=== PATIENT | female | born 1965 | race Caucasian/White ===

== ENCOUNTER 2023-01-13 09:56 | Outpatient (AMB) | payer OTHER, SELFPAY ==
--- NOTE | 2023-01-13 10:07 | AM.OFFWIN_ITS ---
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 Patient has been complaining of left foot pain for the past 1 month. Does not recall any fall or injury prior to the onset of symptoms. 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 Recently she was on vacation for a week and her symptoms subsided only to be aggravated again. Physical Exam Vital Signs: Last Vital Signs Temp 98.8 F 01/13/23 10:08 Pulse 110 H 01/13/23 10:08 BP 122/82 01/13/23 10:08 Pulse Ox 96 01/13/23 10:08 Oxygen Delivery Method Room Air 01/13/23 10:08 BMI result Body Mass Index 39.8 Extrem Other: Left foot: Tenderness over the calcaneus. Discomfort on inversion and eversion. Assessment & Plan Assessment & Plan (1) Plantar fasciitis of left foot: Code(s): M72.2 - Plantar fascial fibromatosis Plan: X-ray images were personally reviewed by me. Meloxicam called in. Patient was advised to stay off the foot Orders: Orders XR foot LT min 3V Today M72.2 - Plantar fascial fibromatosis Coding Level of Care Code New Pt Level 4 (73688) Diagnoses Plantar fasciitis of left foot M72.2
[2023-01-13 10:08] VITALS: BP 122/82; PULSE 110; TEMP 37.1; O2SAT 96; BMI 39.8
== END 2023-01-13 11:56 | disposition home or self-care (01) ==
PROVIDERS: Visit Provider Internal Medicine
DX: M72.2 Plantar fascial fibromatosis (principal)
CPT/HCPCS: 99204

== ENCOUNTER 2023-01-13 11:07 | Outpatient (REF) | payer OTHER, SELFPAY ==
--- NOTE | ~2023-01-13 | XR_ITS ---
EXAMINATION: XR FOOT, LEFT CLINICAL INFORMATION: Plantar fascial fibromatosis COMPARISON: None available. TECHNIQUE: AP, lateral, and oblique views of the left foot. FINDINGS: The moderate size calcaneal enthesophyte. No visible acute fracture or dislocation seen. The ankle mortise and subtalar joints are normal. XR/XR foot LT min 3V IMPRESSION: Moderate size calcaneal enthesophyte. No visible acute fracture or dislocation seen. No soft tissue abnormality seen.
== END 2023-01-13 11:08 | disposition home or self-care (01) ==
LOC: HO.HMGCX 11:07
PROVIDERS: Visit Provider Internal Medicine
DX: M72.2 Plantar fascial fibromatosis (principal)
CPT/HCPCS: 73630

== ENCOUNTER 2023-01-22 08:54 | Outpatient (AMB) | payer OTHER, SELFPAY ==
--- NOTE | 2023-01-22 08:55 | AM.OFFWIN_ITS ---
Intake Vital Signs 01/22/23 08:56 Height 5 ft 2 in Weight 222 lb 2 oz BMI 40.6 BP 132/80 Blood Pressure Location Rt brachial Position Sitting Pulse 78 Pulse Source Pulse Oximeter Temp 97.0 F Temp Source Temporal Artery Scan Pulse Oximetry (%) 97 Intake Visit Reasons: EP Follow up LT Foot Intake Note: pt is here for f/u from left foot bone spur Patient Tobacco Use Status: Never used Tobacco Allergies No Known Allergies Allergy (Verified 01/22/23 09:14) Medication List - Last Reconciled 01/22/23 by Mook Molina MD meloxicam 15 mg PO DAILY Do you need a note to return to daycare/school/sports/work: Yes HPI EP Follow up LT Foot HPI Details 57-year-old female presents to the offic e for a follow-up visit. Patient is reporting significant improvement in her symptoms. She followed the advised provided in the last visit which included keeping her leg elevated. She is now able to bear weight and feels she can return back to work with no restrictions. Able to walk with no difficulty. PFSH Social History Patient Tobacco Use Status: Never used Tobacco Physical Exam Vital Signs: Last Vital Signs Temp 97.0 F 01/22/23 08:56 Pulse 78 01/22/23 08:56 BP 132/80 01/22/23 08:56 Pulse Ox 97 01/22/23 08:56 BMI result Body Mass Index 40.6 Extrem Other: No tender areas identified. Assessment & Plan Assessment & Plan (1) Plantar fasciitis of left foot: Code(s): M72.2 - Plantar fascial fibromatosis Plan: Keep foot elevated. Return to work with no restrictions. Coding Level of Care Code Est Pt Level 3 (03754) Diagnoses Plantar fasciitis of left foot M72.2
[2023-01-22 08:56] VITALS: BP 132/80; PULSE 78; TEMP 36.1; O2SAT 97; BMI 40.6
== END 2023-01-22 09:17 | disposition home or self-care (01) ==
PROVIDERS: Visit Provider Internal Medicine
DX: M72.2 Plantar fascial fibromatosis (principal)
CPT/HCPCS: 99213

== ENCOUNTER 2023-01-30 07:42 | Outpatient (AMB) | payer OTHER, SELFPAY ==
--- NOTE | 2023-01-30 08:11 | A.OFFPC_ITS ---
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 She was last seen in the walk-in 9 days prior to this appointment for left foot pain. A left foot x-ray revealed bone spur of the left heel. She reports that she is prediabetic and that she has gastric reflux. Her last eye exam was 3 months prior to the appointment, her last colonoscopy was reported to be in 2019, her last Pap smear was reported to be in 2021. She is up-to-date with her influenza vaccination, and has not elected for the COVID booster this year. She has no complaints at the time of visit. [facility] Surgical History (Updated 01/30/23 @ 08:30 by MATHEW Camp) History of tonsillectomy Family History (Updated 01/30/23 @ 08:31 by MATHEW Camp) Father Substance use disorder Mother Mental health disorder Breast cancer Social History Housing: House Patient Tobacco Use Status: Former Tobacco user e-Cigarette/Vaping Use: Never Used service: No Current occupational status: employed Cognitive needs: No Hearing needs: No Vision needs: Yes Questionnaire PHQ-9 Over the last 2 weeks, how often have you been bothered by any of the following problems? 1. Little interest or pleasure in doing things: several days 2. Feeling down, depressed, or hopeless: several days 3. Trouble falling or staying asleep, or sleeping too much: several days 4. Feeling tired or having little energy: several days 5. Poor appetite or overeating: several days 6. Feeling bad about yourself - or that you are a failure or have let yourself or your family down: several days 7. Trouble concentrating on things, such as reading the newspaper or watching television: not at all 8. Moving or speaking so slowly that other people could have noticed. Or the opposite - being so fidgety or restless that you have been moving around a lot more than usual: not at all 9. Thoughts that you would be better off or of hurting yourself in some way: not at all Total score: 6 Depression Screening Interpretation: Negative Depression Screening Done: Yes 04820 - PHQ-9 Billing: Yes Source: Developed by Drs. Rasheed Martinez, Shira Araya, Melchor Suh and colleagues, with an educational farhad from [email or web address]. Thrive Questionnaire Date Thrive assessed: 01/30/23 I am a: Patient What is your living situation today?: I have a steady place to live Within the past 12 months, did the food you bought not last and you didn't have the money to get more?: Sometimes True Within the past 12 months, did you worry whether your food would run out before you got money to buy more?: Sometimes True Do you have trouble paying for medicines?: No Do you have trouble getting transportation to medical appointments?: No Do you have trouble paying your heating and electricity bill?: Yes Do you have trouble taking care of your child, family member or friend?: No Do you have trouble with day-to-day activities such as bathing, preparing meals, shopping, managing finances, etc.?: No Are you currently unemployed and looking for a job?: No Are you interested in more education?: No AUDIT C Alcohol Use Questionnaire (AUDIT-C) 1. How often do you have a drink containing alcohol?: Monthly or less 2. How many drinks containing alcohol do you have on a typical day when you are drinking?: 1 or 2 3. How often do you have six or more drinks on one occasion?: Never Total Score: 1 YESICA-7 AMB Questionnaire YESICA-7 Date YESICA - 7 assessed: 01/30/23 Feeling nervous, anxious, or on edge: 0 = Not at all Not being able to stop or control worryin = Several days Worrying too much about different things: 1 = Several days Trouble relaxin = Not at all Being so restless that it is hard to sit still: 0 = Not at all Becoming easily annoyed or irritable: 1 = Several days Feeling afraid as if something awful might happen: 1 = Several days Total YESICA-7 score (0-4 normal; 5-9 mild; 10-14 moderate; 15-21 severe): 4 Source: Developed by Drs. Rasheed Martinez, Shira Araya, Melchor Suh and colleagues, with an educational farhad from [email or web address]. YESICA-7 Assessment Billing YESICA-7 Assessment Tool: YESICA-7 Assessment 38131 Review of Systems Const Details: Constitutional : No Weight loss, No Fever, No Chills, Admits feeling tired during the day. ENT/Mouth : No sore throat, No Rhinorrhea. Patient states she has some ringing in the ears. Eyes: No Eye Pain, No Swelling, No Redness Cardiovascular : No Chest Pain, No SOB, No Dyspnea on Exertion, No Orthopnea, No Edema, No Palpitations Respiratory : No Cough, No Sputum, No Wheezing Gastrointestinal : No Nausea, No Vomiting, No Diarrhea, No Constipation, No abdominal Pain, No Hematochezia, No Melena Genitourinary : No Dysuria, No Urinary Frequency, No Hematuria, Musculoskeletal : No joint pain, No Myalgias, No Joint Swelling Skin : No Skin Lesions, No rash Neuro : No Weakness, No Numbness, No Dizziness, No Headache Psych : No Anxiety/Panic, No Depression Heme/Lymph: No Bruising, No Bleeding,No Lymphadenopathy Endocrine : No Polyuria, No Polydipsia All other systems reviewed and are negative All systems reviewed & are unremarkable except as noted in HPI and below Physical exam (Primary Care) Care Plan Goal for BP management: Vital signs have been reviewed and are stable. BMI result Body Mass Index 40.6 Tobacco/Smoking Status: Tobacco use Status Patient Tobacco Use Status Never used Tobacco 01/22/23 09:00 Depression Screening Interpretation: Negative Const General: cooperative and no acute distress Orientation/consciousness: patient oriented x3 Limitations: no limitations HENMT Head: Yes normal to inspection and Yes normocephalic General nose exam: Normal external nose present Face and sinus: Yes normal facial exam and No sinus tenderness Mouth: Normal oral and palatal mucosa present Eyes General: appearance normal, both eyes and all related structures Sclerae: sclerae normal Pupils: Equal, round and reactive pupils present EOM: EOMs intact bilaterally Direct Ophthalmoscopy: normal light reflex and no photophobia Neck Neck: Yes normal visual inspection, Yes full ROM and Yes no lymphadenopathy Thyroid: Thyroid normal Lymphatic: no lymphadenopathy noted Resp Effort & Inspection: normal respiratory effort Auscultation: clear to auscultation bilaterally Cardio Jugular venous distension: no JVD Rate: regular rate Rhythm: regular rhythm and abnormal rhythm Heart sounds: S1 normal heart sound present and S2 normal heart sound present GI Inspection: Yes normal to inspection Palpation (GI): Soft to palpation and nontender General: Yes no CVA tenderness Back/Spine/Pelvis Back: no CVA tenderness Skin General skin exam: no rashes or lesions noted Neuro General: patient oriented x3 and CN's II-XI intact bilaterally Cranial nerves: Yes Equal, round and reactive pupils present Gait exam (Neuro): Normal gait present Motor exam (neuro): 5/5 motor strength present throughout Deep tendon reflexes (DTR's): Right patellar reflex intensity grade: 2+ and Left patellar reflex intensity grade: 2+ Extrem General: Yes normal to inspection and Yes full ROM Psych Attitude: cooperative Thought process: Normal thought process present Insight: Good insight present (Psych) Judgement: Good judgement present (Psych) Results Reviewed Results Reviewed: Will call patient with results. Assessment and Plan Assessment & Plan (1) Encounter for routine adult physical exam with abnormal findings: Comment: Will draw CBC, CMP, UA, TSH, T4, A1c, vitamin-D, vitamin-B, iron profile, lipid profile. Code(s): Z00.01 - Encounter for general adult medical examination with abnormal findings (2) GERD (gastroesophageal reflux disease): Comment: Patient states she changed her diet 6 weeks prior to this visit. She states that her GERD symptoms have improved significantly and would like to continue to try to control her symptoms with diet modification. Code(s): K21.9 - Gastro-esophageal reflux disease without esophagitis Qualifiers: Esophagitis presence: esophagitis presence not specified Qualified Code(s): K21.9 - Gastro-esophageal reflux disease without esophagitis Plan: Patient states that she feels tired during the day. Notice that her sleep improved when she started wearing nasal strips. Patient has been given fluticasone nasal spray. Patient declined sleep referral at this time. Plan Patient will follow-up with physical exam in 1 year. Will get back to patient with lab results as soon as they are available. Orders: Orders Hemoglobin A1c Today Z00. - Encounter for general adult medical examination with abnormal findings Complete Blood Count Auto Diff Today Z. - Encounter for general adult medical examination with abnormal findings Comprehensive Met. Panel Today Z. - Encounter for general adult medical examination with abnormal findings IRON PROFILE Today Z. - Encounter for general adult medical examination with abnormal findings Lipid Panel Today Z. - Encounter for general adult medical examination with abnormal findings Vitamin D 25-OH (D2 and D3) Today Z. - Encounter for general adult medical examination with abnormal findings UA CC w/rflx Micro + Cult Today Z. - Encounter for general adult medical examination with abnormal findings MM tomosynthesis screening BI Today Z. - Encounter for general adult medical examination with abnormal findings Vitamin B6 Today Z. - Encounter for general adult medical examination with abnormal findings Vitamin B12 Today Z. - Encounter for general adult medical examination with abnormal findings TSH reflex Free T4 Today Z. - Encounter for general adult medical examination with abnormal findings Referrals [employer] SUPERINTENDENT Referral Z. - Encounter for general adult medical examination with abnormal findings Medications: New fluticasone propionate 50 mcg/actuation (Allergy Relief (fluticasone)) administer into each nostril 1 spray intranasal Q12H 16 grams 0RF Discontinued meloxicam Discontinued Reason: Patient Completed Course 15 mg PO DAILY 14 tabs 0RF Coding Level of Care Code New Pt Level 4 (68346) Diagnoses Encounter for routine adult physical exam with abnormal findings Z00. Gastroesophageal reflux disease, unspecified whether esophagitis present K21.9 Esophagitis presence: esophagitis presence not specified Additional Codes YESICA-7 Assessment Billing - YESICA-7 Assessment Tool: YESICA-7 Assessment 63535 ([id number]) Time Spent (min) 30
[2023-01-30 08:14] VITALS: BP 120/72; PULSE 77; O2SAT 97; BMI 40.6
== END 2023-01-30 09:29 | disposition home or self-care (01) ==
PROVIDERS: Visit Provider Nurse Practitioner Primary Care
DX: Z00.00 Encounter for general adult medical examination without abnormal findings (principal); K21.9 Gastro-esophageal reflux disease without esophagitis
CPT/HCPCS: 99396

== ENCOUNTER 2023-01-30 08:59 | Outpatient (REF) | payer OTHER, SELFPAY ==
[2023-01-30 11:14] LABS: MANUAL DIFF FLAG NO
[2023-01-30 11:29] LABS: Appearance Urine Clear; Color Urine Yellow; Glucose Urine UA Negative (Negative); Leukocyte Esterase Urine Negative (Negative); Nitrite Urine Negative (Negative); Urine Blood Negative (Negative); Urine Ketones Negative (Negative); Urine Protein Negative (Neg-Trace)
[2023-01-30 11:38] LABS: Basophils Absolute Auto 0.1 X10*3/uL (0.0-0.2); Eosinophils Absolute Auto 0.2 X10*3/uL (0.0-0.4); Eosinophils Percent Auto 3.2 % (0-4); Hematocrit 40.3 % (37.0-47.0); Hemoglobin 12.8 g/dl (12.0-16.0); Imm Gran Abs Auto 0.01 X10*3/uL (0.00-0.03); Imm Gran Pct Auto 0.2 % (0.0-0.4); Lymphocytes Absolute Auto 2.2 X10*3/uL (1.2-4.9); Lymphocytes Percent Auto 35.5 % (20-40); Mean Corpuscular HGB Conc 31.8 g/dl (31.0-35.0); Mean Corpuscular Hemoglobin 27.5 pg (27.0-33.0); Mean Corpuscular Volume 86.5 fL (80.0-98.0); Mean Platelet Volume 9.7 fL (9.4-12.3); Monocytes Absolute Auto 0.6 X10*3/uL (0.1-1.2); Neutrophils Absolute Auto 3.2 x10*3/uL (2.0-8.3); Neutrophils Percent Auto 51.1 % (45-73); Platelet Count 342 X10*3/uL (160-400); Red Blood Count 4.66 X10*6/uL (4.20-5.50); Red Cell Distribution Width 14.1 % (11.0-16.0); White Blood Count 6.2 X10*3/uL (4.8-10.8)
[2023-01-30 11:45] LABS: Estimated Average Glucose 137 mg/dL; Hemoglobin A1C 151.4212 umol/L; Hemoglobin A1c % 6.4 % (<6.0)
[2023-01-30 11:53] LABS: Alanine Aminotransferase 17 U/L (0-31); Albumin Level 4.4 g/dL (3.5-5.0); Alkaline Phosphatase 80 U/L (39-117); Anion Gap 12 (12-20); Aspartate Amino Transferase 15 U/L (5-31); Bilirubin Total 0.4 mg/dL (0.0-1.0); Blood Urea Nitrogen 10 mg/dL (9-16); Calcium 9.4 mg/dL (8.4-10.2); Carbon Dioxide 26 mmol/L (22-29); Chloride 108 mmol/L (96-108); Cholesterol 195 mg/dL (<200); Estimated Glomerular Filt Rate > 60; Glucose Random 114 mg/dL (60-115); HDL Cholesterol 45 mg/dL (>40); Iron 65 mcg/dL (30-160); LDL Cholesterol Calculated 126 mg/dL (<100); Percent Iron Saturation 23 % (15-50); Potassium 4.5 mmol/L (3.3-5.1); Sodium 141 mmol/L (135-145); Total Iron Binding Capacity 279 mcg/dL (228-428); Total Protein 7.6 g/dL (6.5-8.0); Triglycerides 121 mg/dL (<150); Unsaturated Iron Binding 214 ug/dL
[2023-01-30 12:09] LABS: TSH reflex Free T4 1.03 uIU/mL (0.32-4.0)
[2023-01-30 12:22] LABS: Vitamin B12 295 pg/mL (200-900)
[2023-02-05 11:53] LABS: Vitamin B6 7.8 ng/mL (2.1-21.7)
[2023-02-05 12:53] LABS: Vitamin D 25-OH, D2 <4 ng/mL; Vitamin D 25-OH, D3 11 ng/mL; Vitamin D 25-OH, Total 11 ng/mL (30-100)
== END 2023-01-30 09:00 | disposition home or self-care (01) ==
LOC: HO.HMGCLDS 08:59
PROVIDERS: PCP Nurse Practitioner Primary Care; Visit Provider Nurse Practitioner Primary Care
DX: Z00.01 Encounter for general adult medical examination with abnormal findings (principal)
CPT/HCPCS: 36415; 80053; 80061; 81003; 82306; 82607; 83036; 83540; 84207; 84443; 85025

== ENCOUNTER 2023-03-19 15:33 | Outpatient (REF) | payer OTHER, SELFPAY ==
--- NOTE | ~2023-03-19 | MM_ITS ---
EXAMINATION: MM SCREENING DIGITAL BREAST TOMOSYNTHESIS, BILATERAL CLINICAL INFORMATION: Screening. Asymptomatic. COMPARISON: Mammography: This is a new baseline study. There are no prior mammograms available for comparison. TECHNIQUE: Digital breast tomosynthesis is performed in both the craniocaudal and mediolateral oblique views along with computer-aided detection (CAD). Synthesized 2D images are generated from the tomosynthesis. FINDINGS: There are scattered areas of fibroglandular density (ACR BI-RADS breast composition Category b). There are no significant masses, abnormal calcifications, or other abnormalities. MM/MM tomosynthesis screening BI IMPRESSION: No mammographic evidence of malignancy. ASSESSMENT: BI-RADS BI-RADS 1 - Negative RECOMMENDATION: Routine annual mammography screening. 1 year F/U This examination should not preclude the clinical evaluation of a suspicious palpable abnormality. This patient's information was entered into a reminder system with a target due date for their next mammogram.
== END 2023-03-19 15:34 | disposition home or self-care (01) ==
LOC: HO.MAMMO 15:33
PROVIDERS: PCP Nurse Practitioner Primary Care; Visit Provider Nurse Practitioner Primary Care
DX: Z12.31 Encounter for screening mammogram for malignant neoplasm of breast (principal)
CPT/HCPCS: 77063; 77067

== ENCOUNTER → 2023-03-19 15:45 | Outpatient (BNV) | payer OTHER, SELFPAY | PROVIDERS: PCP Nurse Practitioner Primary Care; Visit Provider Radiology Diagnostic Radiology | DX: Z12.31 Encounter for screening mammogram for malignant neoplasm of breast (principal) | CPT/HCPCS: 77063; 77067 ==

== ENCOUNTER 2023-04-01 12:23 | Outpatient (REF) | payer OTHER, SELFPAY ==
[2023-04-09 03:29] LABS: HPV 16 RNA NOT DETECTED (NOT DETECTED); HPV mRNA E6/E7 rflx Detected (Not Detected)
== END 2023-04-01 12:24 | disposition home or self-care (01) ==
LOC: HO.LNP 12:23
PROVIDERS: PCP Nurse Practitioner Primary Care; Visit Provider Obstetrics & Gynecology
DX: Z12.4 Encounter for screening for malignant neoplasm of cervix (principal); Z11.51 Encounter for screening for human papillomavirus (HPV)
CPT/HCPCS: 87624; 87625; 88142

== ENCOUNTER 2023-04-01 12:23 | Outpatient (AMB) | payer OTHER, SELFPAY ==
[2023-04-01 12:39] VITALS: BP 120/72; BMI 41.0
--- NOTE | 2023-04-01 12:39 | MHC.OFFVIS ---
Intake Vital Signs 04/01/23 12:39 Height 5 ft 2 in Weight 224 lb BMI 41.0 BP 120/72 Intake Visit Reasons: Well woman exam Expenditure Requisition Clerk Required: No Information Interpreted: non-clinical & clinical Clinical Administrative Coordinator: Clinical Administrative Coordinator Present (Aidyn) Allergies No Known Allergies Allergy (Verified 04/01/23 12:40) Is last menstrual period known: No Post menopausal: Yes Patient : No HPI HPI Comments History of Present Illness Details Presenting for annual exam. No complaints. Last Pap/HPV not available in EMR Last Mammogram was in 03/19 BI-RADS 1 Last colonoscopy was 3 years ago, the recommendation was to repeat in 5 years , according to the patient, no reports available. PFSH Surgical History History of tonsillectomy Family History Father Substance use disorder Mother Mental health disorder Breast cancer Social History Housing: House Patient Tobacco Use Status: Former Tobacco user e-Cigarette/Vaping Use: Never Used Patient : No service: No Current occupational status: employed Cognitive needs: No Hearing needs: No Vision needs: Yes Female Reproductive History Menstrual Age of Menarche: 11 control method: none Total pregnancies: 2 Full term: 2 Number of Living Children: 2 Date of Mammogram: 03/19/23 Review of Systems Const All systems reviewed & are unremarkable except as noted in HPI and below Card Reports as per HPI Resp Reports as per HPI GI Reports as per HPI and Reports no additional complaints Reports as per HPI Physical Exam Vital Signs: Last Vital Signs BP 120/72 04/01/23 12:39 BMI result Body Mass Index 41.0 Const General: cooperative, healthy appearing and comfortable Chest Chest palpation & inspection: normal inspection of the chest and normal palpation of entire chest wall Breast/axilla inspection: normal inspection of the breasts and normal inspection of the axillae Breast/axilla palpation: normal palpation of the breasts, normal palpation of the axillae and no axillary lymphadenopathy Resp Effort & Inspection: normal respiratory effort Auscultation: clear to auscultation bilaterally Percussion: percussion normal Cardio Palpation: normal PMI Rate: regular rate Rhythm: regular rhythm Heart sounds: no murmurs and no rubs Peripheral pulses: Peripheral pulses 2+ throughout GI Inspection: Yes normal to inspection Palpation (GI): Soft to palpation, nontender, no guarding, not rigid and No hepatosplenomegaly present Percussion: Yes normal to percussion Auscultation: normal bowel sounds Rectal Exam - Female: deferred General: Yes bladder normal to palpation External Female Exam: No lesion Speculum Exam - Vagina: normal appearance of the vagina, normal palpation, normal vaginal discharge and not erythematous Speculum Exam - Cervix: normal appearance of the cervix and normal palpation Bimanual exam- vagina & uterus: normal bimanual exam, normal palpation, uterine size normal, bladder normal to palpation, consistency normal and normal palpation Bimanual Exam- Adnexa, other: normal adnexae, no masses and no tenderness Assessment & Plan Assessment & Plan (1) Well woman exam: Code(s): Z01.419 - Encounter for gynecological examination (general) (routine) without abnormal findings Plan: Co testing done. Counseled the patient about the recommended dietary allowance of 1200 mg of Calcium & 600 IU of vitamin D. Instructions given the patient to schedule next screening Mammogram in 03/20. The patient was instructed to perform monthly self-breast exams and schedule annual exam in a year. All questions answered and the patient verbalized understanding. Orders: Orders Pap Smear Today Z12.4 - Encounter for screening for malignant neoplasm of cervix Coding Level of Care Code New Pt Prev Care 40-64y(29749) Diagnoses Well woman exam Z01.419
== END 2023-04-01 13:48 | disposition home or self-care (01) ==
LOC: HO.HWS 12:23
PROVIDERS: PCP Nurse Practitioner Primary Care; Visit Provider Obstetrics & Gynecology
DX: Z01.419 Encounter for gynecological examination (general) (routine) without abnormal findings (principal)
CPT/HCPCS: 99386

== ENCOUNTER 2023-04-16 12:47 | Outpatient (AMB) | payer OTHER, SELFPAY ==
[2023-04-16 12:56] VITALS: BP 110/70
--- NOTE | 2023-04-16 12:56 | MHC.OFFVIS ---
Intake Vital Signs 04/16/23 12:56 Height 5 ft 2 in BP 110/70 Intake Visit Reasons: Colposcopy Editor Dictionary Required: No Information Interpreted: non-clinical & clinical Bench Mover: Bench Mover Present (Laly CARROLL) Accompanied by: Self / Same As Patient Allergies No Known Allergies Allergy (Verified 04/16/23 12:56) Is last menstrual period known: Yes HPI HPI Comments History of Present Illness Details Presenting for col[facility] History History of tonsillectomy Family History Father Substance use disorder Mother Mental health disorder Breast cancer Social History Housing: House Patient Tobacco Use Status: Former Tobacco user e-Cigarette/Vaping Use: Never Used service: No Current occupational status: employed Cognitive needs: No Hearing needs: No Vision needs: Yes Female Reproductive History Menstrual Age of Menarche: 11 Review of Systems Const All systems reviewed & are unremarkable except as noted in HPI and below Physical Exam Vital Signs: Last Vital Signs BP 110/70 04/16/23 12:56 General: Yes no CVA tenderness External Female Exam: normal external appearance and normal appearance of the urethra Speculum Exam - Vagina: normal appearance of the vagina, normal palpation, no lesions and no masses Speculum Exam - Cervix: normal appearance of the cervix, normal palpation, no lesions, no masses, nontender and Other cervical findings present (2 cm endocervical polyp) Bimanual exam- vagina & uterus: normal bimanual exam, normal palpation, uterine size normal, normal palpation, uterine shape normal, No Cervical tenderness present and non-tender Bimanual Exam- Adnexa, other: normal adnexae Back/Spine/Pelvis Back: no CVA tenderness Office Procedures Colposcopy Before the procedure was started discussed with the patient the procedure, alternatives & all the risks associated with the procedure (bleeding, infection, injury to vagina, bladder, vessels, possible need for transfusion with all its risks) then patient signed the consent Pap smear = ascus/HPV positive Urine test done in the office was negative Speculum inserted, acetic acid used Colposcopy done Transformation zone seen, acetowhite lesions identified at 6+12+3 o?clock, cervical biopsies taken from 6+12+3 o?clock, ECC done afterwards. Vaginoscopy of the upper vagina showed no evidence of any aceto-white lesions Monsel solution used for hemostasis. The patient tolerated well . At the end the patient was instructed to call if temp>100.4, abdominal pain, n/v, bleeding; The patient was given the following instructions: nothing per vagina, no intercourse or bath tub use. All questions answered the patient verbalized understanding. Instructed the patient to make an appointment in 2 weeks for follow-up This note was generated with a voice recognition program. Some errors may have been overlooked during the review of this note. Sometimes these errors may affect the content or meaning of a given sentence. 77554-Itfeqkoab of cervix including upper vagina with biopsy and ECC Procedure code (CPT) selection complete INTERMEDIATE FRAME TENDER Biopsy Before the procedure was started, discussed with the patient the procedure technique, alternatives & all the risks associated with the procedure including but not limited to: bleeding , infection, uterine perforation, injury to bladder, vessels, bowels, possible need for transfusion with all its risks, and others. All questions were answered, the patient verbalized understanding and signed the consent. Urine test done in the office was negative Using a long Xiao Clamp the endocervical polyp was grasped and twisted around till it came off, hemostasis was secured using pressure. The patient tolerated the procedure well. Instructions were given to the patient to call if bleeding, temp>100.4 occur. The patient verbalized understanding and agreed with the plan. This note was generated with a voice recognition program. Some errors may have been overlooked during the review of this note. Sometimes these errors may affect the content or meaning of a given sentence. 63358-Vmimjh of Cervix Procedure code (CPT) selection complete Assessment & Plan Assessment & Plan (1) ASCUS with positive high risk HPV cervical: Code(s): R87.610 - Atypical squamous cells of undetermined significance on cytologic smear of cervix (ASC-US); R87.810 - Cervical high risk human papillomavirus (HPV) DNA test positive Plan: Discussed with the patient the result of her abnormal pap, its significance, risk of progression, persistence, and regression if untreated. the false positive/negative rate being a screening test, the indication for diagnostic test -colposcopy, biopsy, endocervical curettage. Colpo superior/biopsy/ECC done, see procedure note The patient verbalized understanding and agreed with the plan, all questions answered. (2) Endocervical polyp: Code(s): N84.1 - Polyp of cervix uteri Plan: Discussed with the patient the findings of the endocervical polyp on pelvic exam, recommended polypectomy. Endocervical polypectomy done, see procedure note Orders: Orders AMB Colposcopy Today R87.610 - Atypical squamous cells of undetermined significance on cytologic smear of cervix (ASC-US), R87.810 - Cervical high risk human papillomavirus (HPV) DNA test positive AMB INTERMEDIATE FRAME TENDER Biopsy Today N84.1 - Polyp of cervix uteri Coding Level of Care Code Procedure Only Diagnoses ASCUS with positive high risk HPV cervical R87.610; R87.810 Endocervical polyp N84.1 CPT Codes Colposcopy - CPT: 61890-Qsqmphlmc of cervix including upper vagina with biopsy and ECC ([id number]) INTERMEDIATE FRAME TENDER Biopsy - CPT: 93609-Mpumfe of Cervix ([id number])
== END 2023-04-16 13:19 | disposition home or self-care (01) ==
PROVIDERS: PCP Nurse Practitioner Primary Care; Visit Provider Obstetrics & Gynecology
DX: R87.610 Atypical squamous cells of undetermined significance on cytologic smear of cervix (ASC-US) (principal); R87.810 Cervical high risk human papillomavirus (HPV) DNA test positive; N84.1 Polyp of cervix uteri
CPT/HCPCS: 57454

== ENCOUNTER 2023-04-16 12:47 | Outpatient (REF) | payer OTHER, SELFPAY | END 2023-04-16 12:48 | disposition home or self-care (01) | LOC: HO.LNP 12:47 | PROVIDERS: PCP Nurse Practitioner Primary Care; Visit Provider Obstetrics & Gynecology | DX: R87.610 Atypical squamous cells of undetermined significance on cytologic smear of cervix (ASC-US) (principal); R87.810 Cervical high risk human papillomavirus (HPV) DNA test positive; N84.1 Polyp of cervix uteri | CPT/HCPCS: 57454; 88305; 88342; 88360 ==

== ENCOUNTER 2023-05-05 12:58 | Outpatient (AMB) | payer OTHER, SELFPAY ==
[2023-05-05 13:25] VITALS: BP 116/76; BMI 41.0
--- NOTE | 2023-05-05 13:25 | MHC.OFFVIS ---
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 The patient is doing well with no complaints. The pathology showed the following: A. Endocervix, curettage: Endocervical glandular mucosa; negative for dysplasia. B. Cervix, 3:00, biopsy: Squamous mucosa with reactive changes and scant endocervical glandular epithelium; negative for dysplasia. C. Cervix, 6:00, biopsy: Scant squamous and endocervical glandular epithelium; negative for dysplasia. D. Cervix, 11:00, biopsy: Endocervical glandular mucosa; negative for dysplasia; no squamous component present. E. Cervical polyp, resection: Benign endocervical polyp with inflammation, metaplasia, and reactive changes; negative for dysplasia Comment: The atypical cells in the patient's previous Pap test ([id number]) have some similarities to the reactive epithelium in the current biopsy and may represent reactive changes PFSH Surgical History History of tonsillectomy Family History Father Substance use disorder Mother Mental health disorder Breast cancer Social History Housing: House Patient Tobacco Use Status: Former Tobacco user e-Cigarette/Vaping Use: Never Used Patient : No service: No Current occupational status: employed Cognitive needs: No Hearing needs: No Vision needs: Yes Female Reproductive History Menstrual Age of Menarche: 11 control method: none Review of Systems Const All systems reviewed & are unremarkable except as noted in HPI and below Reports as per HPI and Reports no additional complaints GI Reports no additional complaints Reports no additional complaints Physical Exam Vital Signs: Last Vital Signs BP 116/76 05/05/23 13:25 BMI result Body Mass Index 41.0 Assessment & Plan Assessment & Plan (1) Endocervical polyp: Code(s): N84.1 - Polyp of cervix uteri Plan: Discussed with the patient the results the polyp pathology, the patient was reassured. All questions answered, the patient verbalized understanding (2) ASCUS with positive high risk HPV cervical: Code(s): R87.610 - Atypical squamous cells of undetermined significance on cytologic smear of cervix (ASC-US); R87.810 - Cervical high risk human papillomavirus (HPV) DNA test positive Plan: Discussed with the patient the pathology results of the colposcopy biopsies & endocervical curettage ( negative). Discussed with the patient the sensitivity specificity, positive and negative predictive value in detecting cervical cancer in addition discussed the regression, persistence and progression rates. Recommended co-testing in 12 months, if cytology and or HPV are abnormal will proceed was colposcopy biopsy and endocervical curettage. Instructions given to the patient to schedule a co test appointment in 1 year. All questions answered the patient verbalized understanding. Coding Level of Care Code Est Pt Level 3 (03616) Diagnoses Endocervical polyp N84.1 ASCUS with positive high risk HPV cervical R87.610; R87.810
== END 2023-05-05 13:40 | disposition home or self-care (01) ==
PROVIDERS: PCP Nurse Practitioner Primary Care; Visit Provider Obstetrics & Gynecology
DX: N84.1 Polyp of cervix uteri (principal); R87.610 Atypical squamous cells of undetermined significance on cytologic smear of cervix (ASC-US); R87.810 Cervical high risk human papillomavirus (HPV) DNA test positive
CPT/HCPCS: 99213

== ENCOUNTER → 2023-05-05 12:58 | Outpatient (BNVA) | payer OTHER, SELFPAY | PROVIDERS: PCP Nurse Practitioner Primary Care; Visit Provider Obstetrics & Gynecology ==